=== PATIENT | male | born 1985 | race Caucasian/White ===

== ENCOUNTER → 2016-09-06 | Outpatient (REF) | payer OTHER | LOC: M LAB REF 16:22 | PROVIDERS: ATTEND Physician Assistant Medical | DX: R30.0 Dysuria (principal) ==

== ENCOUNTER 2017-03-05 10:57 | Emergency (ER) | payer SELFPAY, OTHER ==
[2017-03-05] MEDS: NS 1,000 ML IV (12:30)
[2017-03-05] MEDS: ONDANSETRON 4MG/2ML VIAL (J2405) IV (12:30)
[2017-03-05] MEDS: KETOROLAC 30 MG/ML VIAL (J1885) IV (12:30)
[2017-03-05 13:09] LABS: BASO % 0.4 % (0.0-1.0); EOS # 0.1 10^3/uL (0.0-0.50); EOS % 0.9 % (0.0-3.0); HEMOGLOBIN 16.4 g/dl (14.0-18.0); IMMATURE GRANULOCYTE % 0.2 % (0-0); LYMPH # 2.2 10^3/uL (1.5-4.5); MEAN CORPUSCULAR HEMOGLOBIN 31.1 pg (27.0-33.0); MEAN CORPUSCULAR HGB CONC 35.7 g/dl (32.0-36.5); MEAN CORPUSCULAR VOLUME 87.3 fl (80.0-96.0); MONO # 0.4 10^3/uL (0.0-0.8); MONO % 6.9 % (0.0-5.0); NEUTROPHILS # 3.1 10^3/uL (1.8-7.7); NEUTROPHILS % 53.6 % (36.0-66.0); PLATELET COUNT, AUTOMATED 249 10^3/uL (150-450); RED BLOOD COUNT 5.27 10^6/uL (4.30-6.10); RED CELL DISTRIBUTION WIDTH 11.7 % (11.5-14.5); WHITE BLOOD COUNT 5.7 10^3/uL (4.0-10.0)
[2017-03-05 13:12] LABS: KETONE, URINE AUTO RFX NEGATIVE (NEGATIVE); LEUKOCYTE ESTERASE UR AUTO RFX NEGATIVE (NEGATIVE); MUCUS, URINE RFX SMALL (NEGATIVE); NITRITE, URINE AUTO RFX NEGATIVE (NEGATIVE); RBC, URINE AUTO RFX 3 /HPF (0-3); SPECIFIC GRAVITY UR AUTO RFX 1.016 (1.002-1.035); SQUAM EPITHELIAL CELL UR AURFX 0 /HPF (0-6); WBC, URINE AUTO RFX 3 /HPF (0-3)
[2017-03-05] MEDS: MORPHINE 4 MG/ML 1ML SYRINGE IV (13:36)
[2017-03-05 14:00] LABS: ANION GAP 4 MEQ/L (8-16); BLOOD UREA NITROGEN 7 MG/DL (7-18); CALCIUM LEVEL 8.4 MG/DL (8.5-10.1); CARBON DIOXIDE LEVEL 28 MEQ/L (21-32); CHLORIDE LEVEL 109 MEQ/L (98-107); CREATININE FOR GFR 0.84 MG/DL (0.70-1.30); GLOMERULAR FILTRATION RATE > 60.0 (>60); GLUCOSE, FASTING 87 MG/DL (70-105); POTASSIUM SERUM 4.4 MEQ/L (3.5-5.1); SODIUM LEVEL 141 MEQ/L (136-145)
== END 2017-03-05 15:00 | disposition home or self-care (01) ==
LOC: M ED 10:57
DX: I88.0 Nonspecific mesenteric lymphadenitis (principal); F17.200 Nicotine dependence, unspecified, uncomplicated
CPT/HCPCS: J2405

== ENCOUNTER 2017-03-08 20:24 | Emergency (ER) | payer SELFPAY ==
[2017-03-08] MEDS ORDERED: LIDOCAINE 1% MDV 20ML VIAL As Ordered (21:16)
[2017-03-08 21:21] LABS: BASO % 0.4 % (0.0-1.0); EOS # 0.1 10^3/uL (0.0-0.50); EOS % 1.3 % (0.0-3.0); HEMATOCRIT 47.4 % (42.0-52.0); HEMOGLOBIN 16.7 g/dl (14.0-18.0); IMMATURE GRANULOCYTE % 0.1 % (0-0); LYMPH # 3.3 10^3/uL (1.5-4.5); LYMPH % 41.2 % (24.0-44.0); MEAN CORPUSCULAR HEMOGLOBIN 30.9 pg (27.0-33.0); MEAN CORPUSCULAR HGB CONC 35.2 g/dl (32.0-36.5); MEAN CORPUSCULAR VOLUME 87.6 fl (80.0-96.0); MONO # 0.5 10^3/uL (0.0-0.8); MONO % 5.9 % (0.0-5.0); NEUTROPHILS # 4.1 10^3/uL (1.8-7.7); NEUTROPHILS % 51.1 % (36.0-66.0); PLATELET COUNT, AUTOMATED 269 10^3/uL (150-450); RED BLOOD COUNT 5.41 10^6/uL (4.30-6.10); RED CELL DISTRIBUTION WIDTH 11.5 % (11.5-14.5)
[2017-03-08] MEDS: cefTRIAXone SOD 1 GM VIAL (J0696) IM (21:25)
[2017-03-08] MEDS: AZITHROMYCIN 250 MG TAB PO (21:25)
[2017-03-08 21:41] LABS: ALBUMIN 4.5 GM/DL (3.2-5.2); ALBUMIN/GLOBULIN RATIO 1.25 (1.00-1.93); ALKALINE PHOSPHATASE 85 U/L (45-117); ALT/SGPT 31 U/L (12-78); ANION GAP 5 MEQ/L (8-16); AST/SGOT 27 U/L (7-37); BILIRUBIN,DIRECT < 0.1 MG/DL (0.0-0.2); BILIRUBIN,TOTAL 0.4 MG/DL (0.2-1.0); BLOOD UREA NITROGEN 9 MG/DL (7-18); CARBON DIOXIDE LEVEL 31 MEQ/L (21-32); CHLORIDE LEVEL 105 MEQ/L (98-107); CREATININE FOR GFR 1.06 MG/DL (0.70-1.30); GLOMERULAR FILTRATION RATE > 60.0 (>60); GLUCOSE, FASTING 98 MG/DL (70-105); LIPASE 357 U/L (73-393); POTASSIUM SERUM 4.5 MEQ/L (3.5-5.1); SODIUM LEVEL 141 MEQ/L (136-145); TOTAL PROTEIN 8.1 GM/DL (6.4-8.2)
[2017-03-08] MEDS: NORCO 5/325MG TABLET (BULK FOR ED) PO (21:58)
== END 2017-03-08 22:04 | disposition home or self-care (01) ==
LOC: M ED 20:24
DX: A54.9 Gonococcal infection, unspecified (principal); R10.11 Right upper quadrant pain; R10.31 Right lower quadrant pain; Z87.442 Personal history of urinary calculi; F17.200 Nicotine dependence, unspecified, uncomplicated
CPT/HCPCS: J0696

== ENCOUNTER 2017-03-28 02:41 | Emergency (ER) | payer SELFPAY ==
[2017-03-28] MEDS: MESALAMINE 250 MG CR CAP PO (05:54)
[2017-03-28] MEDS: DICYCLOMINE INJ 20MG/2ML (J0500) IM (05:54)
[2017-03-28] MEDS: PROMETHAZINE INJ 25 MG/ML VIAL (J2550) IM (05:54)
== END 2017-03-28 07:00 | disposition left against medical advice (07) ==
LOC: M ED 02:41
DX: G89.29 Other chronic pain (principal); R10.9 Unspecified abdominal pain; F11.20 Opioid dependence, uncomplicated; Z72.89 Other problems related to lifestyle; N20.0 Calculus of kidney; F12.10 Cannabis abuse, uncomplicated; F14.10 Cocaine abuse, uncomplicated; Z87.442 Personal history of urinary calculi; Z79.899 Other long term (current) drug therapy; Z53.21 Procedure and treatment not carried out due to patient leaving prior to being seen by health care provider
CPT/HCPCS: J0500

== ENCOUNTER 2017-04-08 14:44 | Emergency (ER) | payer SELFPAY | END 2017-04-08 17:00 | disposition left against medical advice (07) | LOC: M ED 14:44 | DX: R10.9 Unspecified abdominal pain (principal); Z53.21 Procedure and treatment not carried out due to patient leaving prior to being seen by health care provider ==

== ENCOUNTER 2017-04-10 23:53 | Emergency (ER) | payer SELFPAY ==
[2017-04-11] MEDS ORDERED: KETOROLAC 30 MG/ML VIAL (J1885) As Ordered (00:24)
[2017-04-11] MEDS: PROMETHAZINE INJ 25 MG/ML VIAL (J2550) IM (00:30)
[2017-04-11] MEDS: KETOROLAC 60 MG/2 ML VIAL (J1885) IM (00:30)
[2017-04-11] MEDS: DICYCLOMINE INJ 20MG/2ML (J0500) IM (01:15)
== END 2017-04-11 02:33 | disposition left against medical advice (07) ==
LOC: M ED 23:53
DX: Z87.442 Personal history of urinary calculi (principal); F14.21 Cocaine dependence, in remission; F12.10 Cannabis abuse, uncomplicated; F17.200 Nicotine dependence, unspecified, uncomplicated; Z72.89 Other problems related to lifestyle; Z53.21 Procedure and treatment not carried out due to patient leaving prior to being seen by health care provider; Z79.899 Other long term (current) drug therapy
CPT/HCPCS: 99284

== ENCOUNTER 2017-11-27 07:29 | Day surgery (SDC) | payer OTHER ==
[2017-11-27] MEDS: NS 1,000 ML IV (07:51)
[2017-11-27] MEDS ORDERED: PROPOFOL 200 MG/20 ML VIAL As Ordered ×2 (08:45)
[2017-11-27] MEDS ORDERED: LIDOCAINE 2% INJ 100 MG/5 ML SDV (FOR ANES.) As Ordered (08:46)
== END 2017-11-27 09:47 | disposition home or self-care (01) ==
LOC: M OPP 07:29
DX: R10.31 Right lower quadrant pain (principal); K58.9 Irritable bowel syndrome, unspecified; K59.00 Constipation, unspecified; R11.10 Vomiting, unspecified; R07.89 Other chest pain; Z87.442 Personal history of urinary calculi; F19.90 Other psychoactive substance use, unspecified, uncomplicated; F32.9 Major depressive disorder, single episode, unspecified; F41.9 Anxiety disorder, unspecified; F17.210 Nicotine dependence, cigarettes, uncomplicated; F12.10 Cannabis abuse, uncomplicated; Z83.71 Family history of colonic polyps
CPT/HCPCS: 45378

== ENCOUNTER → 2017-11-28 | Outpatient (CLI) | payer OTHER ==
[~2017-11-28] MED LIST: E-Z-GAS II EFFERVESCENT PACKET (SODIUM BICARB./CITRIC ACID/SIMETHICONE) As Ordered; E-Z-HD 98% w/w 340GM SUSP BTL As Ordered; E-Z-PAQUE 96% w/w SUSP 176GM BTL As Ordered
== END ==
LOC: M RAD 07:36
DX: K44.9 Diaphragmatic hernia without obstruction or gangrene (principal); R10.31 Right lower quadrant pain; R93.3 Abnormal findings on diagnostic imaging of other parts of digestive tract
CPT/HCPCS: 74245

== ENCOUNTER → 2018-06-02 | Outpatient (CLI) | payer MEDICAID ==
[~2018-06-02] MED LIST changes: +DONN1TAB3; +DOXY100C37 PO; -E-Z-GAS II EFFERVESCENT PACKET (SODIUM BICARB./CITRIC ACID/SIMETHICONE) As Ordered; -E-Z-HD 98% w/w 340GM SUSP BTL As Ordered; -E-Z-PAQUE 96% w/w SUSP 176GM BTL As Ordered; +HYDR-3715 PO; +HYOS0.1214; +META58.68; +NAPR-837 PO; +OMEP20CA3; +REGL10TA6; +SUBO8MIS SL; +ZOFR4TAB14; +ZOFR4TAB14 PO; +suboxone PO
== END ==
LOC: M OUTALCOH 10:16
PROVIDERS: ATTEND Psychiatry & Neurology Psychiatry
DX: F11.20 Opioid dependence, uncomplicated (principal)

== ENCOUNTER 2018-06-30 14:30 | Outpatient (RCR) | payer MEDICAID | END 2018-07-01 | LOC: M OUTALCOH 14:30 | PROVIDERS: ATTEND Psychiatry & Neurology Psychiatry | DX: F12.10 Cannabis abuse, uncomplicated (principal); F11.20 Opioid dependence, uncomplicated; Z72.0 Tobacco use ==

== ENCOUNTER → 2018-08-01 | Outpatient (RCR) | payer MEDICAID | LOC: M OUTALCOH 07-04 14:46 | PROVIDERS: ATTEND Psychiatry & Neurology Psychiatry | DX: F11.20 Opioid dependence, uncomplicated (principal); F12.10 Cannabis abuse, uncomplicated; Z72.0 Tobacco use ==

== ENCOUNTER 2018-08-19 05:51 | Day surgery (SDC) | payer OTHER ==
[~2018-08-19] VITALS: Ht 180.3 cm; Wt 93.9 kg
[2018-08-19] MEDS ORDERED: LIDOCAINE 1% MDV 20ML VIAL SQ PRN (06:00)
[2018-08-19] MEDS ORDERED: VICO5TAB17 PO (06:19)
[2018-08-19] MEDS ORDERED: OMEP10CASR PO (06:19)
[2018-08-19] MEDS ORDERED: LR 1,000 ML IV ONE (07:00)
[2018-08-19] MEDS ORDERED: ceFAZolin SOD 1 GM in D5W MINI-BAG PLUS 50 ML IV ONE (07:00)
[2018-08-19] MEDS ORDERED: BUPIVACAINE/EPIN 0.25% 30 ML VIAL As Ordered ONE (07:15)
[2018-08-19] MEDS ORDERED: SUGAMMADEX SODIUM 500 MG/5 ML VIAL (BRIDION) As Ordered ONE (07:51)
[2018-08-19] MEDS ORDERED: PROPOFOL 200 MG/20 ML VIAL As Ordered ONE (07:51)
[2018-08-19] MEDS ORDERED: KETOROLAC 60 MG/2 ML VIAL (J1885) As Ordered ONE (07:51)
[2018-08-19] MEDS ORDERED: MIDAZOLAM INJ 2 MG/2 ML VIAL (J2250) As Ordered ONE (07:51)
[2018-08-19] MEDS ORDERED: fentaNYL 250 MCG/5 ML INJECTION (J3010) As Ordered ONE (07:51)
[2018-08-19] MEDS ORDERED: LIDOCAINE 2% INJ 100 MG/5 ML SDV (FOR ANES.) As Ordered ONE (07:51)
[2018-08-19] MEDS ORDERED: dexameTHASONE 4 MG/ML 1ML VIAL (J1100) As Ordered ONE (07:51)
[2018-08-19] MEDS ORDERED: ONDANSETRON 4MG/2ML VIAL (J2405) As Ordered ONE (07:51)
[2018-08-19] MEDS ORDERED: METOCLOPRAMIDE INJ 10MG/2ML VIAL (J2765) As Ordered ONE (07:51)
[2018-08-19] MEDS ORDERED: ROCURONIUM BROMIDE 50 MG/5 ML VIAL As Ordered ONE (07:51)
[2018-08-19] MEDS ORDERED: ACETAMINOPHEN 1000MG 100ML IV BTL (OFIRMEV) (J0131 PER 10MG) As Ordered ONE (08:01)
--- NOTE | 2018-08-19 08:55 | RO ---
DATE OF PROCEDURE: 08/19/2018 PREOPERATIVE DIAGNOSIS: Symptomatic gallbladder dysfunction. POSTOPERATIVE DIAGNOSIS: Symptomatic gallbladder dysfunction. PROCEDURE: Laparoscopic cholecystectomy. SURGEON: Drake Dave Jr., MD ANESTHESIA: General endotracheal anesthesia. ESTIMATED BLOOD LOSS (EBL): Minimal. FLUIDS: Crystalloid. DESCRIPTION OF PROCEDURE: Brief procedure summary: The patient was brought to the operating room and was given general anesthesia. After adequate anesthesia and preoperative antibiotics were given, the patient was prepped and draped in usual sterile fashion. Next, a supraumbilical incision was made with skin knife. Blunt dissection was carried down to the fascia. Veress needle placed into the abdominal cavity, insufflated to 15 mm of pressure, and a dilating 10 mm trocar was placed under direct visualization, and an epigastric and two lateral trocars were placed, and the gallbladder was seen, grasped, and retracted superiorly. There were some adhesions of the omentum up against the gallbladder, which were taken down with the hook cautery; and eventually, the neck of the gallbladder was then cleared of peritoneum down to the cystic duct. Circumferentially, I was able to dissect out the cystic duct, and the cystic artery was well visualized. Once this was mobilized quite nicely, a good window behind the neck of the gallbladder was created, and the critical view of safety was achieved. Next, this was clipped proximally and distally. The cystic duct, as well as the cystic artery, and transected, and the gallbladder was removed from the gallbladder bed using electrocautery. There was a small 3 mm vein almost at the dome of the gallbladder that I clipped, as well, and transected with electrocautery, but otherwise the operative field was clean and dry. This was placed in an EndoCatch bag, brought out through the umbilicus. The right upper quadrant was copiously irrigated until clear. All trocars removed under direct visualization. 0 Vicryl was used close the fascia at the umbilicus, and all incisions were closed with 4-0 Vicryl. Steri-Strips and a dry sterile dressing were applied. The patient was awakened, extubated, brought to the recovery room awake, alert, and hemodynamically stable. Sponge and needle counts correct times two.
[2018-08-19] MEDS ORDERED: NORCO, ANEXSIA 5/325MG TABLET (HYDROcodone/ACETAMINOPHEN) As Ordered ONE (08:57)
[2018-08-19] MEDS ORDERED: ONDANSETRON 4MG/2ML VIAL (J2405) IV PRN ×2 (09:00→09:15)
[2018-08-19] MEDS ORDERED: PERCOCET 5MG/325MG TAB PO PRN (09:00)
[2018-08-19] MEDS ORDERED: NORCO, ANEXSIA 5/325MG TABLET (HYDROcodone/ACETAMINOPHEN) PO PRN (09:00)
[2018-08-19] MEDS ORDERED: LR 1,000 ML IV SCH ×2 (09:00→09:15)
[2018-08-19] MEDS ORDERED: fentaNYL 100 MCG/2 ML INJECTION (J3010) IV PRN (09:00)
[2018-08-19 10:25] VITALS: BP 108/61
== END 2018-08-19 10:30 | disposition home or self-care (01) ==
LOC: M SDC 05:51
PROVIDERS: ATTEND Surgery
DX: K82.8 Other specified diseases of gallbladder (principal); K58.9 Irritable bowel syndrome, unspecified; K21.9 Gastro-esophageal reflux disease without esophagitis; F41.9 Anxiety disorder, unspecified; F32.9 Major depressive disorder, single episode, unspecified; F31.9 Bipolar disorder, unspecified; R51 Headache; R63.4 Abnormal weight loss; Z87.820 Personal history of traumatic brain injury; Z87.442 Personal history of urinary calculi; Z87.891 Personal history of nicotine dependence; Z86.59 Personal history of other mental and behavioral disorders
CPT/HCPCS: 47562; 88304; J0131; J0690; J1100; J1885; J2250; J2405; J2765; J3010

== ENCOUNTER 2018-08-27 12:00 | Outpatient (RCR) | payer MEDICAID ==
[~2018-08-27 12:00] MED LIST changes: +OMEP10CASR PO; +VICO5TAB17 PO
== END 2018-08-31 ==
LOC: M OUTALCOH 12:00
PROVIDERS: ATTEND Psychiatry & Neurology Psychiatry
DX: F11.20 Opioid dependence, uncomplicated (principal); F12.10 Cannabis abuse, uncomplicated; Z72.0 Tobacco use

== ENCOUNTER 2018-09-26 08:00 | Outpatient (RCR) | payer MEDICAID ==
[~2018-09-26 08:00] MED LIST changes: -OMEP20CA3; +OMEP20CA4
== END 2018-10-01 ==
LOC: M OUTALCOH 08:00
PROVIDERS: ATTEND Psychiatry & Neurology Psychiatry
DX: F11.20 Opioid dependence, uncomplicated (principal); F12.10 Cannabis abuse, uncomplicated; Z72.0 Tobacco use

== ENCOUNTER 2018-10-10 15:06 | Outpatient (RCR) | payer MEDICAID, SELFPAY | END 2018-11-01 | LOC: M OUTALCOH 15:06 | PROVIDERS: ATTEND Psychiatry & Neurology Psychiatry | DX: F11.20 Opioid dependence, uncomplicated (principal); F12.10 Cannabis abuse, uncomplicated; Z72.0 Tobacco use ==